=== PATIENT | male | born 1995 | race American Indian/Alaskan Native ===

== ENCOUNTER 2019-08-17 04:04 | Emergency (ER) | payer MEDICARE ==
[2019-08-17 04:10] VITALS: BP 131/79
--- NOTE | 2019-08-17 08:00 | Emergency Department Report ---
ED Fever HPI - General Chief Complaint: Fever Stated Complaint: FEVER Time Seen by Provider: 08/17/19 07:37 Source: patient, RN notes reviewed Exam Limitations: no limitations - History of Present Illness Initial Comments: This is a 24-year-old -[place] male who presents to the emergency room with fever and congestion for 3 days. Past medical history of hyperthyroidism. Patient's grandmother states she is given cold and flu medication which is improving symptoms. Reports fever is intermittent. He spiked a low-grade fever around 3 AM this morning. She decided to bring patient in. Grandmother states vice president of compliance told her to bring patient in if he ever spikes a fever from methimazole medication. Patient has been taking medication for 2 years. Grandmother states there are multiple family members with similar symptoms. She reports a cough, rhinorrhea, and intermittent fever. Patient denies nausea, vomiting, diarrhea, abdominal pain, myalgia, or weakness. Timing/Duration: intermittent Fever Severity/Quality: low grade Fever Therapy [employer]IST: cold remedies Associated Symptoms: denies symptoms ED Review of Systems ROS: Stated complaint: FEVER Other details as noted in HPI Constitutional: chills, fever ENT: denies: ear pain, throat pain Respiratory: denies: cough, shortness of breath, wheezing Cardiovascular: denies: chest pain, palpitations Gastrointestinal: denies: abdominal pain, nausea, diarrhea Skin: denies: rash, lesions Neurological: denies: headache, weakness, paresthesias Psychiatric: denies: anxiety, depression ED Past Medical Hx - Past Medical History Previous Medical History?: Yes Hx GERD: Yes Additional medical history: DOWNS - Surgical History Past Surgical History?: No - Social History Smoking Status: Never Smoker Substance Use Type: None - Medications Home Medications: Home Medications Medication Instructions Recorded Confirmed Last Taken Type Ibuprofen [Motrin] 800 mg PO Q8HR PRN #30 tablet 04/10/15 Unknown Rx Ondansetron [Zofran Odt] 4 mg PO Q4HR PRN #30 tab.rapdis 04/10/15 Unknown Rx traMADoL [Ultram] 50 mg PO Q6HR PRN #14 tablet 04/10/15 Unknown Rx ED Physical Exam - General Limitations: Other General appearance: alert, in no apparent distress, obese - ENT ENT exam: Present: normal orophraynx, mucous membranes moist, other (turbinates congested with clear discharge) - Neck Neck exam: Present: normal inspection - Respiratory Respiratory exam: Present: normal lung sounds bilaterally. Absent: respiratory distress - Cardiovascular Cardiovascular Exam: Present: regular rate, normal rhythm. Absent: systolic murmur, diastolic murmur, rubs, gallop - GI/Abdominal GI/Abdominal exam: Present: soft, normal bowel sounds. Absent: distended, tenderness, guarding, rebound, rigid - Extremities Exam Extremities exam: Present: normal inspection - Neurological Exam Neurological exam: Present: alert, oriented X3, normal gait - Psychiatric Psychiatric exam: Present: normal affect, normal mood - Skin Skin exam: Present: warm, dry, intact, normal color. Absent: rash ED Course Vital Signs 08/17/19 08/17/19 08/17/19 04:08 04:15 08:25 Temperature 98.7 F Pulse Rate 116 H 106 H 90 Respiratory 18 Rate Blood Pressure 131/79 O2 Sat by Pulse 94 Oximetry ED Medical Decision Making - Medical Decision Making 24 y.o. male that presents with URI symptoms. PMH of hyperthyroidism and down syndrome. Patient examined by me and stable. No distress noted and well- appearing. Vitals normal. Symptoms are most likely viral upper respiratory symptoms. Low suspension of [employer]IST, deep space infection, sinusitis, strep throat, or pneumonia from exam and history. There is low suspicion of fever they are related to methimazole medication. Patient on medication for 2 years. Grandparent states others at home with similar symptoms. Instructed to continue cold and flu medications. Follow-up with primary care doctor. Discharged home stable. Encouraged to do supportive care for URI. Given strict return instructions. Patient discharged home stable. Critical care attestation.: If time is entered above; I have spent that time in minutes in the direct care of this critically ill patient, excluding procedure time. ED Disposition Clinical Impression: Upper respiratory infection Qualifiers: URI type: acute nasopharyngitis (common cold) Qualified Code(s): J00 - Acute nasopharyngitis [common cold] Disposition: TO HOME OR SELFCARE Is pt being admited?: No Condition: Stable Instructions: Upper Respiratory Infection (ED), Cold Symptoms (ED) Additional Instructions: Increase fluid intake and rest. Wash hands frequently. Continue taking Tylenol or ibuprofen to control fever. F/U with Primary Care Provider. Return to ER if fever, SOB, or difficulty breathing after 48 hours of supportive care. Referrals: [facility] [Outside] - 3-5 Days CECI JUAN MD [Staff Physician] - 3-5 Days [facility] [Provider Group] - 3-5 Days Forms: Work/School Release Form(ED) Time of Disposition: 08:13
== END 2019-08-17 08:26 | disposition home or self-care (01) ==
LOC: ED 04:04
DX: J00 Acute nasopharyngitis [common cold] (principal); K21.9 Gastro-esophageal reflux disease without esophagitis; Z79.899 Other long term (current) drug therapy
CPT/HCPCS: 99282